=== PATIENT | female | born 1980 | race African-American/Black ===

== ENCOUNTER 2017-01-06 19:00 | Emergency (ER) | payer MEDICAID ==
[~2017-01-06] VITALS: Ht 165.1 cm; Wt 61.2 kg
[2017-01-06 19:06] VITALS: BP 95/68
[2017-01-06 22:00] VITALS: BP 90/59
[2017-01-07 02:31] VITALS: BP 108/65
--- NOTE | 2017-01-07 04:03 | Emergency Room Report ---
Physical Exam Vital Signs Date Time Temp Pulse Resp B/P Pulse Ox O2 Delivery O2 Flow Rate FiO2 01/06/17 18:55 98.2 76 18 95/68 98 Room Air Medical Decision Making Diagnostic Impression: Primary Impression: Acute alcoholic intoxication Qualified Codes: F10.120 - Alcohol abuse with intoxication, uncomplicated ER Course Patient signed out to me. She was initially seen by PARMINDER Phipps and Dr. Yuan. She present with alcohol intoxication. She slept for several hours and woke up without any difficulty. She walked to the bathroom without any difficulty. Speech is clear. She says she's not homeless. Wants to go home. Patient will be discharged home. Last Vital Signs Date Time Temp Pulse Resp B/P Pulse Ox O2 Delivery O2 Flow Rate FiO2 01/06/17 22:00 85 15 90/59 95 Room Air 01/06/17 19:06 98.2 Status: improved Disposition: HOME, SELF-CARE Condition: Improved Referrals: [facility] (PCP) Patient Instructions: Alcohol Intoxication Additional Instructions: My findings were discussed with the patient. Patient was counseled to seek help for alcohol abuse. Patient is stable for discharge, is alert and oriented, and can ambulate without difficulty. Patient is asked to return to ED if she experiences chest pain, abdominal pain, dizziness, falls down, or for any reason. MELVI DEMARCO M.D. Jan 07, 2017 04:03
== END 2017-01-07 02:35 | disposition home or self-care (01) ==
LOC: EDBD 19:00 → EMR 19:39
DX: F10.129 Alcohol abuse with intoxication, unspecified (principal)
CPT/HCPCS: 99284

== ENCOUNTER 2017-06-24 23:59 | Emergency (ER) | payer MEDICAID ==
[~2017-06-24] VITALS: Ht 172.7 cm; Wt 54.4 kg
[2017-06-24 23:51] VITALS: BP 94/65
[2017-06-25] MEDS ORDERED: Norco 5mg/325mg tab ORAL ONE (00:15)
--- NOTE | 2017-06-25 00:53 | Emergency Room Report ---
History of Present Illness General Chief Complaint: Multiple Trauma/Fall Source: Patient Present Illness HPI Is a 36-year-old female with no cerumen past medical history. She presents with chief complaint of head injury and eye injury. She said she was drinking tonight and tripped and fell, hitting her head on the porcelain bowl. Unknown loss of consciousness. Her left eye is also on. She called 911. Pain is 8/ 10. No nausea no vomiting. No fever or chills. Allergies: Coded Allergies: No Known Allergies (Unverified , 01/06/17) Patient History Past Medical History: see triage record, old chart reviewed Past Surgical History: other Pertinent Family History: none Social History: Reports: alcohol use Last Menstrual Period: UNK Now: No Immunizations: other Reviewed Nursing Documentation: PMH: Agreed, PSxH: Agreed Nursing Documentation-PMH Past Medical History: No Stated History Review of Systems Eye: Denies: eye pain, blurred vision ENT: Denies: ear pain, nose congestion, throat swelling Respiratory: Denies: cough, shortness of breath Cardiovascular: Denies: chest pain, palpitations Gastrointestinal: Denies: abdominal pain, diarrhea, nausea, vomiting Musculoskeletal: Denies: back pain, joint pain Skin: Denies: rash Neurological: Denies: headache, numbness Endocrine: Denies: increased thirst, increased urine Hematologic/Lymphatic: Denies: easy bruising All Other Systems: negative except mentioned in HPI Physical Exam Vital Signs Date Time Temp Pulse Resp B/P (MAP) Pulse Ox O2 Delivery O2 Flow Rate FiO2 06/24/17 23:44 98.4 06/24/17 23:44 86 16 94/65 98 Room Air vitals normal Sp02 EP Interpretation: reviewed, normal General Appearance: well appearing, no apparent distress, alert, other - Intoxicated Head: normocephalic, other - left orbital hematoma. Left upper eyelid swollen shut. No hemotympanum Eyes: bilateral eye PERRL, bilateral eye EOMI ENT: hearing grossly normal, normal pharynx Neck: full range of motion, supple, no meningismus Respiratory: chest non-tender, lungs clear, normal breath sounds Cardiovascular #1: regular rate, rhythm, no murmur Gastrointestinal: normal bowel sounds, non tender, no mass, no organomegaly, no bruit, non-distended Musculoskeletal: back normal, gait/station normal, normal range of motion Psychiatric: mood/affect normal Skin: warm/dry Medical Decision Making Diagnostic Impression: Primary Impression: Acute alcoholic intoxication Qualified Codes: F10.929 - Alcohol use, unspecified with intoxication, unspecified Additional Impression: Drug abuse ER Course Patient with alcohol intoxication and drug abuse. No trauma to warrant CT scan or x-rays. We'll observe her until clinical sobriety. Afterward will discharge. Last Vital Signs Date Time Temp Pulse Resp B/P (MAP) Pulse Ox O2 Delivery O2 Flow Rate FiO2 06/24/17 23:51 98.4 86 16 94/65 98 Room Air Status: improved Disposition: HOME, SELF-CARE Condition: Stable Additional Instructions: abstain from drugs and alcohol. Followup with your Dr. in 7 days. Return if worse. MELVI DEMARCO M.D. Jun 25, 2017 00:53
[2017-06-25 01:51] VITALS: BP 98/60
[2017-06-25 03:51] VITALS: BP 100/61
[2017-06-25 05:31] VITALS: BP 105/68
[2017-06-25 06:25] VITALS: BP 107/71
--- NOTE | 2017-06-25 10:26 | Diagnostic Imaging Report ---
Indication: Head trauma. Headache Technique: Contiguous 5 mm thick transaxial imaging of the head obtained in a Siemens Sensation [address] scanner. Soft tissue and bone windows generated. Total Dose length Product (DLP): [address] Dose Index Volume (CTDIvol): 70.38, 0.15 mGy Comparison: none Findings: The size and configuration of the cortical sulci, basal cisterns, and ventricles are within normal limits for age. There is no mass effect, midline shift, or edema identified. There is no evidence of acute hemorrhage or abnormal intra-axial or extra-axial fluid collections. The bones appear unremarkable. There is left periorbital hematoma and laceration noted. Impression: No mass effect, edema or acute bleed. Left periorbital Contusion/hematoma The CT scanner at [facility] is accredited by the [employer] and the scans are performed using dose optimization techniques as appropriate to a performed exam including Automatic Exposure control.
[2017-06-25] MEDS ORDERED: TYLENOL EXTRA500 MG ORAL (13:20)
== END 2017-06-25 06:30 | disposition home or self-care (01) ==
LOC: EDBD 23:59 → EMR 06-25 01:13
DX: F10.929 Alcohol use, unspecified with intoxication, unspecified (principal); F19.10 Other psychoactive substance abuse, uncomplicated; S09.90XA Unspecified injury of head, initial encounter; W01.0XXA Fall on same level from slipping, tripping and stumbling without subsequent striking against object, initial encounter; Y93.9 Activity, unspecified; Y99.9 Unspecified external cause status
CPT/HCPCS: 70450; 99283; 99284

== ENCOUNTER 2017-06-25 08:08 | Emergency (ER) | payer MEDICAID ==
[~2017-06-25] VITALS: Ht 165.1 cm; Wt 59.0 kg
[2017-06-25 08:48] VITALS: BP 115/80
--- NOTE | 2017-06-25 09:31 | Emergency Room Report ---
History of Present Illness General Chief Complaint: General Complaint Source: Patient Present Illness HPI 36-year-old female presents to ED for evaluation. Patient states she was discharged this morning from [facility]. Patient stated mechanical fall last night and hit her head. Patient had a CT which was negative. Patient has a swelling discharge. Patient is here stating that she feels weak and dizzy. Patient is homeless. Patient denies any additional alcohol use. Denies any headache. Denies any chest pain shortness of breath. No other aggravating relieving factors. Denies any other associated symptoms Allergies: Coded Allergies: No Known Allergies (Unverified , 01/06/17) Patient History Past Medical History: none Past Surgical History: none Pertinent Family History: none Social History: Reports: alcohol use Last Menstrual Period: 6 months ago Now: No Immunizations: UTD Reviewed Nursing Documentation: PMH: Agreed, PSxH: Agreed Nursing Documentation-PMH Past Medical History: No Stated History Review of Systems All Other Systems: negative except mentioned in HPI Physical Exam Vital Signs Date Time Temp Pulse Resp B/P (MAP) Pulse Ox O2 Delivery O2 Flow Rate FiO2 06/25/17 08:15 97.5 92 16 115/80 99 Room Air Sp02 EP Interpretation: reviewed, normal General Appearance: no apparent distress, alert, GCS 15, non-toxic Head: normocephalic, other - L periorbital swelling/bruising/ecchymoses Eyes: bilateral eye normal inspection, bilateral eye PERRL, bilateral eye EOMI ENT: hearing grossly normal, normal pharynx, no angioedema, normal voice Neck: full range of motion, supple/symm/no masses Respiratory: chest non-tender, lungs clear, normal breath sounds, speaking full sentences Cardiovascular #1: regular rate, rhythm, no edema Cardiovascular #2: 2+ carotid (R), 2+ carotid (L), 2+ radial (R), 2+ radial (L) , 2+ dorsalis pedis (R), 2+ dorsalis pedis (L) Gastrointestinal: normal bowel sounds, non tender, soft, non-distended, no guarding, no rebound Rectal: deferred Genitourinary: normal inspection, no CVA tenderness Musculoskeletal: back normal, gait/station normal, normal range of motion, non- tender Neurologic: alert, oriented x3, responsive, motor strength/tone normal, sensory intact, speech normal Psychiatric: judgement/insight normal, memory normal, mood/affect normal, no suicidal/homicidal ideation Reflexes: 3+ bicep (R), 3+ bicep (L), 3+ tricep (R), 3+ tricep (L), 3+ knee (R) , 3+ knee (L) Skin: normal color, no rash, warm/dry, well hydrated Lymphatic: no adenopathy Medical Decision Making Diagnostic Impression: Primary Impression: Acute alcoholic intoxication Qualified Codes: F10.929 - Alcohol use, unspecified with intoxication, unspecified Additional Impression: Periorbital ecchymosis of left eye Qualified Codes: S00.12XD - Contusion of left eyelid and periocular area, subsequent encounter ER Course Hospital Course 36-year-old female presents to ED status post head injury, wanting to sleep Clinical course Patient placed on stretcher. Patient seen last night and was discharged this morning. Patient is CT of head which showed no acute injury but periorbital swelling. She states she feels weak and dizzy. Wants to sleep Given that patient is able to provide an adequate history, I see no need to check blood work or place an IV. Patient allowed to sleep. My assessment shows no evidence of SI/HI requiring psychiatric evaluation. Patient allowed to rest in now awake alert oriented x3. ambulating without difficulty. Diagnosis - ETOH intoxication, periorbital ecchmyosis of left eye stable and discharged to home. Followup with PMD. Return to ED if symptoms recur or worsen Last Vital Signs Date Time Temp Pulse Resp B/P (MAP) Pulse Ox O2 Delivery O2 Flow Rate FiO2 06/25/17 08:48 97.5 92 16 115/80 99 Room Air Status: improved Disposition: HOME, SELF-CARE Condition: Stable Scripts Acetaminophen* (TYLENOL EXTRA STRENGTH*) 500 Mg Tablet 500 MG ORAL Q8H Y for Prn Headache/Temp > 101, #30 TAB 0 Refills Prov: BELINDA ARSHAD M.D. 06/25/17 Referrals: NON PHYSICIAN (PCP) BELINDA ARSHAD M.D. Jun 25, 2017 09:31
[2017-06-25 13:05] VITALS: BP 112/82
[2017-06-25] MEDS ORDERED: TYLENOL EXTRA500 MG ORAL (13:20)
[2017-06-25 13:27] VITALS: BP 112/82
[2017-06-25] MEDS ORDERED: Acetaminophen 500mg (ES) tab ORAL ONE (13:30)
[2017-06-25] MEDS ORDERED: Neosporin Oint Ud Pkt TOPIC ONE ×2 (13:37→13:45)
== END 2017-06-25 13:47 | disposition home or self-care (01) ==
LOC: EMR 08:35
DX: F10.929 Alcohol use, unspecified with intoxication, unspecified (principal); S00.12XD Contusion of left eyelid and periocular area, subsequent encounter; W19.XXXD Unspecified fall, subsequent encounter; Z59.0 Homelessness
CPT/HCPCS: 99283

== ENCOUNTER 2017-07-03 22:40 | Emergency (ER) | payer MEDICAID ==
[~2017-07-03] VITALS: Ht 172.7 cm; Wt 72.6 kg
[~2017-07-03 22:40] MED LIST: TYLENOL EXTRA500 MG ORAL
[2017-07-04] MEDS ORDERED: KEFLEX500 MG ORAL (01:32)
[2017-07-04] MEDS ORDERED: Cephalexin 500mg cap ORAL ONE (01:45)
[2017-07-04 02:22] VITALS: BP 123/82
--- NOTE | 2017-07-04 10:54 | Diagnostic Imaging Report ---
Indication: Head trauma and headache Technique: Contiguous 5 mm thick transaxial imaging of the head obtained in a Siemens Sensation [address] scanner. Soft tissue and bone windows generated. Total Dose length Product (DLP): [address] Dose Index Volume (CTDIvol): 70.38, 0.15 mGy Comparison: 06/25/17 Findings: The size and configuration of the cortical sulci, basal cisterns, and ventricles are within normal limits for age. There is no mass effect, midline shift, or edema identified. There is no evidence of acute hemorrhage or abnormal intra-axial or extra-axial fluid collections. There is left periorbital soft tissue swelling present. Impression: No mass effect, edema or acute bleed. Left para orbital soft tissue contusion The CT scanner at [facility] is accredited by the [employer] and the scans are performed using dose optimization techniques as appropriate to a performed exam including Automatic Exposure control.
--- NOTE | 2017-07-04 10:58 | Diagnostic Imaging Report ---
Indication: Facial and orbital trauma. Facial and orbital pain Technique: Continuous helical transaxial imaging of the maxillofacial structures obtained without intravenous contrast administration. Coronal 2-D reformats were also obtained. Study obtained in a Siemens sensation [address] Total Dose length Product (DLP): [address] Dose Index Volume (CTDIvol): 0.15, 28.19 mGy Comparison: None Findings: There is a nasal fracture bilaterally, which may be old. Please correlate clinically. There is facial soft tissue swelling and left periorbital soft tissue swelling. There is no acute fracture of the orbit identified. The paranasal sinuses are clear. The orbits appear normal bilaterally. Impression: Nasal fracture possibly old. Please correlate clinically. No other fractures identified. Facial and left periorbital soft tissue contusion. [facility] has communicated the preliminary results to the Emergency Department. Their findings are largely concordant with this report. The CT scanner at [facility] is accredited by the [employer] and the scans are performed using dose optimization techniques as appropriate to a performed exam including Automatic Exposure control.
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
== END 2017-07-04 02:23 | disposition home or self-care (01) ==
LOC: EDBD 22:40 → EMR 23:17
DX: S01.81XA Laceration without foreign body of other part of head, initial encounter (principal); S00.12XA Contusion of left eyelid and periocular area, initial encounter; Y08.89XA Assault by other specified means, initial encounter; Y92.89 Other specified places as the place of occurrence of the external cause
CPT/HCPCS: 12011; 70450; 70486; 99284; Z7502

== ENCOUNTER 2017-12-30 23:54 | Emergency (ER) | payer MEDICAID ==
[~2017-12-30] VITALS: Ht 167.6 cm; Wt 54.4 kg
[~2017-12-30 23:54] MED LIST changes: +KEFLEX500 MG ORAL
[2017-12-31 00:15] VITALS: BP 112/76
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
[2017-12-31 04:15] VITALS: BP 120/91
[2017-12-31 05:00] VITALS: BP 120/91
== END 2017-12-31 05:00 | disposition home or self-care (01) ==
LOC: EDBD 23:54 → EMR 12-31 00:20
DX: F10.129 Alcohol abuse with intoxication, unspecified (principal)
CPT/HCPCS: 99283

== ENCOUNTER 2018-02-27 15:49 | Emergency (ER) | payer MEDICAID ==
[~2018-02-27] VITALS: Ht 172.7 cm; Wt 63.5 kg
[2018-02-27] MEDS ORDERED: Haloperidol 5mg/ml Inj ONE (15:57)
[2018-02-27] MEDS ORDERED: DiphenhydrAMINE 50mg/ml Inj ONE (15:57)
[2018-02-27] MEDS ORDERED: Haloperidol 5mg/ml Inj IM ONE (16:00)
[2018-02-27] MEDS ORDERED: DiphenhydrAMINE 50mg/ml Inj IM ONE (16:00)
--- NOTE | 2018-02-27 16:04 | Emergency Room Report ---
History of Present Illness General Chief Complaint: Syncope Source: Patient, EMS Present Illness HPI EMS was called to [facility] because the patient apparently had a syncopal episode. People in line to strip picker prescriptions heard a clunk and she had fallen to the ground. She couldn't get up and fell again. She has been slurring her words. The patient refused to answer questions about what she's been taking. She's been argumentative with paramedics. The patient states she is homeless. Patient refuses to answer most questions. Denies pain. Seen 3 times before for alcohol intoxication. Each time denied SI. Allergies: Coded Allergies: No Known Allergies (Unverified , 01/06/17) Patient History Limited by: medical condition Past Medical History: see triage record, old chart reviewed Social History: Reports: smoking, alcohol use Social History Narrative homeless Now: No Reviewed Nursing Documentation: PMH: Agreed; PSxH: Agreed Review of Systems All Other Systems: limited Physical Exam Vital Signs Date Time Temp Pulse Resp B/P (MAP) Pulse Ox O2 Delivery O2 Flow Rate FiO2 02/27/18 15:41 97.5 110 18 132/76 98 Room Air 97.5 Sp02 EP Interpretation: reviewed, normal General Appearance: alert, non-toxic Head: normocephalic, atraumatic Eyes: bilateral eye PERRL, bilateral eye abnormal EOM - nystagmus, bilateral eye Scleral Injection ENT: moist mucus membranes Neck: supple Respiratory: lungs clear, normal breath sounds Cardiovascular #1: regular rate, rhythm Cardiovascular #2: 2+ radial (R) Gastrointestinal: normal inspection, normal bowel sounds, non tender, no mass, non-distended, scaphoid Genitourinary: no CVA tenderness Musculoskeletal: back normal, normal range of motion, non-tender, no calf tenderness Neurologic: alert, responsive, motor strength/tone normal, DTRs symmetric, sensory intact, other - ataxic, slurred speech, unsteady on feet Psychiatric: no suicidal/homicidal ideation Skin: normal inspection, warm/dry Medical Decision Making Diagnostic Impression: Primary Impression: Acute alcoholic intoxication Qualified Codes: F10.929 - Alcohol use, unspecified with intoxication, unspecified ER Course Patient with alleged syncopal episode with slurred speech and unsteady gait. She's noncompliant with the workup at this time and demonstrates poor judgments with inability to refuse care. She'll be sedated and after that we need to evaluate her with CT of the head, EKG, chest x-ray and labs. Patient sedated. She'll be hydrated. Laboratory results are pending. EKG with sinus rhythm without injury. Labs with elevated BA. Patient improved with observation and IV hydration. Denies SI. Still strange affect, but purposeful. Patient eloped from ED. Discussion with staff who feel patient not danger to self and not need to be returned by [employer]. Laboratory Tests Test 02/27/18 16:37 White Blood Count 8.1 K/UL (4.8-10.8) Red Blood Count 4.68 M/UL (4.20-5.40) Hemoglobin 14.8 G/DL (12.0-16.0) Hematocrit 42.9 % (37.0-47.0) Mean Corpuscular Volume 92 FL (80-99) Mean Corpuscular Hemoglobin 31.6 PG (27.0-31.0) H Mean Corpuscular Hemoglobin Concent 34.4 G/DL (32.0-36.0) Red Cell Distribution Width 11.5 % (11.6-14.8) L Platelet Count 364 K/UL (150-450) Mean Platelet Volume 6.2 FL (6.5-10.1) L Neutrophils (%) (Auto) 75.2 % (45.0-75.0) H Lymphocytes (%) (Auto) 18.7 % (20.0-45.0) L Monocytes (%) (Auto) 4.3 % (1.0-10.0) Eosinophils (%) (Auto) 0.9 % (0.0-3.0) Basophils (%) (Auto) 0.8 % (0.0-2.0) Urine Color Pale yellow Urine Appearance Clear Urine pH 6 (4.5-8.0) Urine Specific [place] 1.010 (1.005-1.035) Urine Protein Negative (NEGATIVE) Urine Glucose (UA) Negative (NEGATIVE) Urine Ketones Negative (NEGATIVE) Urine Occult Blood Negative (NEGATIVE) Urine Nitrite Positive (NEGATIVE) H Urine Bilirubin Negative (NEGATIVE) Urine Urobilinogen Normal MG/DL (0.0-1.0) Urine Leukocyte Esterase Negative (NEGATIVE) Urine RBC 0-2 /HPF (0 - 2) Urine WBC 0 /HPF (0 - 2) Urine Squamous Epithelial Cells None /LPF (NONE/OCC) Urine Bacteria Moderate /HPF (NONE) H Urine HCG, Qualitative Negative (NEGATIVE) Sodium Level 146 MMOL/L (136-145) H Potassium Level 3.5 MMOL/L (3.5-5.1) Chloride Level 109 MMOL/L (98-107) H Carbon Dioxide Level 25 MMOL/L (21-32) Anion Gap 12 mmol/L (5-15) Blood Urea Nitrogen 7 mg/dL (7-18) Creatinine 0.6 MG/DL (0.55-1.30) Estimate Glomerular Filtration Rate > 60 mL/min (>60) Glucose Level 95 MG/DL (74-106) Calcium Level 8.7 MG/DL (8.5-10.1) Total Bilirubin 0.2 MG/DL (0.2-1.0) Aspartate Amino Transferase (AST) 19 U/L (15-37) Alanine Aminotransferase (ALT) 26 U/L (12-78) Alkaline Phosphatase 71 U/L (46-116) Total Creatine Kinase 135 U/L (26-308) Total Protein 8.5 G/DL (6.4-8.2) H Albumin 4.2 G/DL (3.4-5.0) Globulin 4.3 g/dL Albumin/Globulin Ratio 1.0 (1.0-2.7) Salicylates Level 1.9 ug/mL (2.8-20) L Urine Opiates Screen Negative (NEGATIVE) Acetaminophen Level < 2 MCG/ML (10-30) L Urine Barbiturates Screen Negative (NEGATIVE) Phencyclidine (PCP) Screen Negative (NEGATIVE) Urine Amphetamines Screen Negative (NEGATIVE) Urine Benzodiazepines Screen Negative (NEGATIVE) Urine Cocaine Screen Negative (NEGATIVE) Urine Marijuana (THC) Screen Positive (NEGATIVE) H Serum Alcohol 384 mg/dL EKG Diagnostic Results Rate: normal Rhythm: NSR ST Segments: no acute changes Rhythm Strip Diag. Results EP Interpretation: yes Rhythm: NSR, no PVC's, no ectopy CT/MRI/US Diagnostic Results CT/MRI/US Diagnostic Results : Imaging Test Ordered: head Impression no bleed, mass, fx Last Vital Signs Date Time Temp Pulse Resp B/P (MAP) Pulse Ox O2 Delivery O2 Flow Rate FiO2 6/8/18 20:54 0/0 02/27/18 16:25 110 18 98 Room Air 02/27/18 15:41 97.5 97.5 Status: improved Disposition: ELOPED Condition: Improved Lars Lovelace M.D. Feb 27, 2018 16:04
[2018-02-27 16:25] VITALS: BP 132/78
[2018-02-27 16:47] LABS: APPEARANCE,URINE CLEAR; BASOPHILS % (AUTO) 0.8 % (0.0-2.0); BILIRUBIN, URINE NEGATIVE (NEGATIVE); COLOR,URINE PALE YELLOW; EOSINOPHILS % (AUTO) 0.9 % (0.0-3.0); GLUCOSE, URINE (UA) NEGATIVE (NEGATIVE); HEMATOCRIT 42.9 % (37.0-47.0); HEMOGLOBIN 14.8 G/DL (12.0-16.0); KETONES,URINE NEGATIVE (NEGATIVE); LEUKOCYTE ESTERASE ,URINE NEGATIVE (NEGATIVE); LYMPHOCYTES % (AUTO) 18.7 % (20.0-45.0); MEAN CORPUSCULAR VOLUME 92 FL (80-99); MONOCYTES % (AUTO) 4.3 % (1.0-10.0); NEUTROPHILS % (AUTO) 75.2 % (45.0-75.0); NITRITE,URINE POSITIVE (NEGATIVE); PH,URINE 6 (4.5-8.0); PLATELET COUNT 364 K/UL (150-450); PROTEIN,URINE NEGATIVE (NEGATIVE); RED BLOOD COUNT 4.68 M/UL (4.20-5.40); RED CELL DISTRIBUTION WIDTH 11.5 % (11.6-14.8); UROBILINOGEN,URINE NORMAL MG/DL (0.0-1.0); WHITE BLOOD COUNT 8.1 K/UL (4.8-10.8)
[2018-02-27 16:58] LABS: ANION GAP 12 mmol/L (5-15); BLOOD UREA NITROGEN 7 mg/dL (7-18); CALCIUM 8.7 MG/DL (8.5-10.1); CARBON DIOXIDE 25 MMOL/L (21-32); CHLORIDE 109 MMOL/L (98-107); CREATININE 0.6 MG/DL (0.55-1.30); POTASSIUM 3.5 MMOL/L (3.5-5.1); SODIUM 146 MMOL/L (136-145)
[2018-02-27 17:04] LABS: ALANINE AMINOTRANSFERASE 26 U/L (12-78); ALBUMIN 4.2 G/DL (3.4-5.0); ALKALINE PHOSPHATASE 71 U/L (46-116); ASPARTATE AMINO TRANSFERASE 19 U/L (15-37); BILIRUBIN,TOTAL 0.2 MG/DL (0.2-1.0); CREATINE KINASE 135 U/L (26-308)
--- NOTE | 2018-02-27 17:51 | Diagnostic Imaging Report ---
EXAM: CT Head Without Intravenous Contrast CLINICAL HISTORY: TRAUMA TECHNIQUE: Axial computed tomography images of the head/brain without intravenous contrast. CTDI is 70.38 + 0.15 mGy and DLP is 1255 mGy-cm. One or more of the following dose reduction techniques were used: automated exposure control, adjustment of the mA and/or kV according to patient size, use of iterative reconstruction technique. COMPARISON: CT 07/03/17 FINDINGS: Brain: No hemorrhage. No edema. Ventricles: No ventriculomegaly. Bones/joints: No acute fracture. Soft tissues: Unremarkable. Sinuses: No acute sinusitis. Mastoid air cells: No mastoid effusion. IMPRESSION: No intracranial hemorrhage or skull fracture.
[2018-02-27 20:54] VITALS: BP 0/0
--- NOTE | 2018-03-03 14:21 | Cardiology Report ---
APPROVED REPORT EKG Measurement Heart [id number] Normal sinus rhythm RSR' or QR pattern in V1 suggests right ventricular conduction delay Borderline ECG
== END 2018-02-27 20:25 | disposition home or self-care (01) ==
LOC: EDBD 15:49 → EMR 16:16
DX: F10.929 Alcohol use, unspecified with intoxication, unspecified (principal); F17.200 Nicotine dependence, unspecified, uncomplicated; Z59.0 Homelessness
CPT/HCPCS: 36415; 70450; 80053; 80307; 80329; 81003; 81025; 82550; 85025; 87086; 93005; 96360; 96372; 96374; 99284; J1200; J1630

== ENCOUNTER 2018-04-06 15:32 | Emergency (ER) | payer MEDICAID ==
[~2018-04-06] VITALS: Ht 170.2 cm; Wt 56.7 kg
[2018-04-06 15:34] VITALS: BP 108/72
--- NOTE | 2018-04-06 16:21 | Emergency Room Report ---
History of Present Illness General Chief Complaint: Behavioral Complaint Source: Patient Present Illness HPI Patient is a 37-year-old female presents today with alcohol intoxication. She was found in the [facility] restroom crying and and was brought to the ED by EMS. She told me she drank several drinks this morning but refused to disclose what the beverage was. She states she is feeling "angry drunk". She denies any pain at this time, suicidal or homicidal ideation. Allergies: Coded Allergies: No Known Allergies (Unverified , 01/06/17) Patient History Last Menstrual Period: 8 months ago, pt has implant for control Now: No Reviewed Nursing Documentation: PMH: Agreed; PSxH: Agreed Nursing Documentation-PMH Past Medical History: No Stated History Physical Exam Vital Signs Date Time Temp Pulse Resp B/P (MAP) Pulse Ox O2 Delivery O2 Flow Rate FiO2 04/06/18 15:26 86 16 108/72 95 Room Air Sp02 EP Interpretation: reviewed, normal General Appearance: no apparent distress, alert, GCS 15, non-toxic Head: normocephalic, atraumatic Eyes: bilateral eye normal inspection, bilateral eye PERRL ENT: hearing grossly normal, normal pharynx, no angioedema, normal voice Neck: full range of motion, supple/symm/no masses Respiratory: chest non-tender, lungs clear, normal breath sounds, speaking full sentences Cardiovascular #1: regular rate, rhythm, no edema Cardiovascular #2: 2+ carotid (R), 2+ carotid (L), 2+ radial (R), 2+ radial (L) , 2+ dorsalis pedis (R), 2+ dorsalis pedis (L) Gastrointestinal: normal bowel sounds, non tender, soft, non-distended, no guarding, no rebound Rectal: deferred Genitourinary: normal inspection, no CVA tenderness Musculoskeletal: back normal, gait/station normal, normal range of motion, non- tender, calf tenderness Neurologic: alert, oriented x3, responsive, motor strength/tone normal, sensory intact, speech normal Psychiatric: memory normal, no suicidal/homicidal ideation, other - appears emotional Reflexes: 3+ bicep (R), 3+ bicep (L), 3+ tricep (R), 3+ tricep (L), 3+ knee (R) , 3+ knee (L) Skin: normal color, no rash, warm/dry, well hydrated Lymphatic: no adenopathy Medical Decision Making PA Attestation My supervising physician Dr. Garcia Diagnostic Impression: Primary Impression: Acute alcoholic intoxication ER Course Patient is an 2 and ambulatory with a steady gait. She is found to be clinically sober. Patient is given food. Patient states she does not want stay and is refusing all workup and intervention the ED and is discharged. Patient stable at time of discharge. Last Vital Signs Date Time Temp Pulse Resp B/P (MAP) Pulse Ox O2 Delivery O2 Flow Rate FiO2 04/06/18 15:34 16 108/72 95 Room Air 04/06/18 15:26 86 Status: improved Disposition: HOME, SELF-CARE Condition: Stable Patient Instructions: Self-Destructive Behavior Yessenia Marshall Apr 06, 2018 16:21
[2018-04-06 16:40] VITALS: BP 112/76
== END 2018-04-06 16:40 | disposition home or self-care (01) ==
LOC: EDBD 15:32 → EMR 16:08
DX: F10.129 Alcohol abuse with intoxication, unspecified (principal)
CPT/HCPCS: 99284